=== PATIENT | female | born 1995 | race Caucasian/White ===

== ENCOUNTER 2019-01-26 22:18 | Emergency (ER) | payer OTHER ==
[2019-01-26 22:35] VITALS: RESP 16
[2019-01-26] MEDS ORDERED: Sodium Chloride 0.9% 1,000 ML IV ONE (22:39)
--- NOTE | 2019-01-26 22:39 | C.PDOC ---
History Of Present Illness Patient complaining of about 2-3 days of rlq abdominal discomfort. No f/c/n/v. No dysuria. Dull, cramping discomfort. tolerating po Time Seen by Provider: 01/26/19 22:39 Chief Complaint (Nursing): Abdominal Pain History Per: Patient History/Exam Limitations: no limitations Onset/Duration Of Symptoms: Days Current Symptoms Are (Timing): Still Present Context: Other Severity: Moderate Pain Scale Rating Of: 4 Location Of Pain/Discomfort: RLQ Radiation Of Pain To:: None Quality Of Discomfort: Dull Associated Symptoms: denies: Fever, Chills, Nausea, Vomiting Exacerbating Factors: None Alleviating Factors: None Last Bowel Movement: Today Recent travel outside of the [place]: No Additional History Per: Patient Abnormal Vaginal Bleeding: No Past Medical History Reviewed: Historical Data, Nursing Documentation, Vital Signs Vital Signs: Last Vital Signs Temp 98.3 F 01/26/19 22:33 Pulse 84 01/26/19 22:33 Resp 16 01/26/19 22:33 BP 132/85 01/26/19 22:33 Pulse Ox 99 01/26/19 22:33 - Medical History PMH: Depression Family History: States: No Known Family Hx - Social History Hx Alcohol Use: Yes Hx Substance Use: Yes Review Of Systems Constitutional: Negative for: Fever, Chills Respiratory: Negative for: Shortness of Breath Gastrointestinal: Positive for: Abdominal Pain. Negative for: Nausea, Vomiting Genitourinary: Negative for: Dysuria Musculoskeletal: Negative for: Back Pain Skin: Negative for: Rash Neurological: Negative for: Weakness Psych: Negative for: Anxiety Physical Exam - Physical Exam Appears: Non-toxic, No Acute Distress Skin: Warm, Dry Oral Mucosa: Moist Chest: Symmetrical Cardiovascular: Rhythm Regular Respiratory: No Rales, No Rhonchi, No Wheezing Gastrointestinal/Abdominal: Bowel Sounds (tympanic to percussion), Soft, Tenderness (rlq), No Distention Back: No CVA Tenderness Extremity: Normal ROM Extremity: Bilateral: Atraumatic Neurological/Psych: Oriented x3 Gait: Steady ED Course And Treatment - Laboratory Results Result Diagrams: 01/26/19 23:05 01/26/19 23:05 O2 Sat by Pulse Oximetry: 99 Pulse Ox Interpretation: Normal - CT Scan/US CT Abdomen and Pelvis Other Rad Studies (CT/US): Read By Radiologist, Radiology Report Reviewed CT/US Interpretation: EXAM: CT Abdomen and Pelvis with IV contrast. CLINICAL HISTORY: PATIENT STATES RUQ PAIN. TECHNIQUE: Axial computed tomography images of the abdomen and pelvis with intravenous contrast. 0.00 mGy-cm. CONTRAST: With; Type and dosage. COMPARISON: None provided. FINDINGS: LUNG BASES: Mild linear atelectasis or scarring in the lung bases. LIVER: There is diffuse fatty infiltration of liver. GALLBLADDER AND BILE DUCTS: Gallbladder is decomp ressed. PANCREAS: Unremarkable. SPLEEN: Unremarkable. ADRENAL GLANDS: Unremarkable. KIDNEYS, URETERS, AND BLADDER: The kidneys appear within normal limits. There is no hydronephrosis or hydroureter. No urinary calculi are seen. STOMACH AND BOWEL: No evidence for bowel obstruction or inflammation. APPENDIX: No evidence of acute appendicitis on CT examination. PERITONEUM: No free fluid. No free air. LYMPH NODES: No lymphadenopathy is evident. REPRODUCTIVE: Unremarkable as visualized. VASCULATURE: No evidence of abdominal aortic aneurysm. BONES: No aggressive appearing osseous lesion. No acute osseous pathology evident. MISCELLANEOUS: An IUD is present within the endometrium. IMPRESSION: 1. Mild linear atelectasis or scarring in the lung bases. 2. There is diffuse fatty infiltration of liver. 3. Gallbladder is decompressed. 4. An IUD is present within the endometrium. 5. No acute pathology identified in the abdomen or pelvis. Reevaluation Time: 02:48 Reassessment Condition: Improved Medical Decision Making Medical Decision Making: Upon provider reevaluation patient is feeling better, is medically stable, and requires no further treatment in the ED at this time. Patient will be discharged home . Counseling was provided and all questions were answered regarding diagnosis and need for follow up with the referred clinic. There is agreement to discharge plan. Return if symptoms persist or worsen. Disposition Counseled Patient/Family Regarding: Studies Performed, Diagnosis - Disposition Referrals: [facility] [Outside] [facility] [Outside] Disposition: HOME/ ROUTINE Disposition Time: 22:39 Condition: FAIR Additional Instructions: Please return if symptoms recur Instructions: Acute Abdomen (Belly Pain), Adult (DC) Forms: [employer] [facility] (Armenian) - Clinical Impression Clinical Impression: Abdominal pain
[2019-01-26 23:11] LABS: BASO # 0.2 K/uL (0.0-0.2); BASO % 2.5 % (0.0-2.0); EOS # 0.1 K/uL (0.0-0.7); HEMOGLOBIN 13.2 g/dL (11.0-16.0); LYMPH # 1.2 K/uL (1.0-4.3); LYMPH % 13.1 % (20.0-40.0); MEAN CORPUSCULAR HEMOGLOBIN 30.6 pg (27.0-31.0); MEAN PLATELET VOLUME 6.8 fL (7.2-11.7); MONO # 0.7 K/uL (0.0-0.8); MONO % 6.9 % (0.0-10.0); NEUT # 7.2 K/uL (1.8-7.0); NEUT % 76.5 % (50.0-75.0); RBC 4.31 Mil/uL (3.80-5.20); RED CELL DISTRIBUTION WIDTH 13.6 % (11.5-14.5); WHITE BLOOD COUNT 9.4 K/uL (4.8-10.8)
[2019-01-26 23:16] LABS: INR 1.1; PROTHROMBIN TIME 11.9 SECONDS (9.7-12.2)
[2019-01-26 23:19] LABS: ALB/GLOB RATIO 1.2 (1.0-2.1); ALBUMIN 4.7 g/dL (3.5-5.0); ALT/SGPT 7 U/L (9-52); AST/SGOT 18 U/L (14-36); BLOOD UREA NITROGEN 17 mg/dL (7-17); CALCIUM 9.8 mg/dl (8.6-10.4); GFR NON-AFRICAN AMERICAN > 60; LIPASE 38 U/L (23-300)
[2019-01-26 23:23] LABS: SQUAMOUS EPITHIAL 4 /hpf (0-5); URINE AMORPHOUS SEDIMENT OCC /ul (<OCC); URINE BACTERIA RARE (<OCC); URINE BILIRUBIN NEGATIVE (NEGATIVE); URINE BLOOD NEGATIVE (NEGATIVE); URINE CLARITY Hazy (Clear); URINE COLOR Yellow (YELLOW); URINE GLUCOSE (UA) NORMAL (Normal); URINE LEUKOCYTE ESTERASE NEG Leu/uL (Negative); URINE PROTEIN 1+ mg/dL (NEGATIVE)
[2019-01-26 23:25] LABS: HCG,QUALITATIVE URINE NEGATIVE (NEGATIVE)
[2019-01-26] MEDS ORDERED: Iodixanol 320 MG/ML 100 ML BOTTLE IV ONE (23:56)
[2019-01-27 02:17] VITALS: BP 109/74; PULSE 67; TEMP 98.7
[2019-01-27 02:50] VITALS: O2SAT 99
--- NOTE | 2019-01-27 10:32 | CT ---
CT abdomen and pelvis HISTORY: Abdominal pain. COMPARISON: None available. Technique: Multiple contiguous axial images were performed through the abdomen and pelvis with the use of intravenous contrast. Subsequently, sagittal and coronal reformatted images were obtained. FINDINGS: Mild scattered atelectasis at the bases. No pleural or pericardial effusion. Prominent liver with mild fatty infiltration. Contracted but otherwise grossly preserved gallbladder. Spleen is preserved. Adrenal glands are preserved. Pancreas is preserved. Upper abdominal bowel is grossly preserved. Right kidney: No calculi or hydronephrosis. Left Kidney: No calculi or hydronephrosis. Urinary bladder is preserved. Intrauterine device noted within the uterus. Prominence of the bilateral adnexa measuring up to 3.1 and 2.9 centimeters. Clinical correlation. Colonic diverticulosis. Fecal retention in the colon. Underdistention and or mild thickening of the sigmoid colon. Clinical correlation. Appendix appears partially imaged, grossly preserved. Few shotty para-aortic and inguinal lymph nodes. Few shotty mesenteric lymph nodes. Osseous structures are preserved. Impression: 1. Colonic diverticulosis. Fecal retention in the colon. Underdistention and or mild thickening of the sigmoid colon. Clinical correlation. 2. Intrauterine device noted within the uterus. 3. Prominent liver with mild fatty infiltration. Additional findings as above. A preliminary report was generated at 2:31 a.m. on 01/27/[address] Juarez North from [employer].
== END 2019-01-27 02:56 | disposition home or self-care (01) ==
LOC: C.ER 22:18
DX: R10.31 Right lower quadrant pain (principal); F32.9 Major depressive disorder, single episode, unspecified
CPT/HCPCS: 74177; 80053; 81001; 83690; 84703; 85025; 85610; 85730; 96361; 96374; 99284; J1885; J7030; Q9967